=== PATIENT | female | born 1980 | race African-American/Black ===

== ENCOUNTER 2017-07-25 13:38 | Emergency (ER) | payer OTHER ==
[~2017-07-25] VITALS: Ht 175.3 cm; Wt 68.4 kg
[~2017-07-25 13:38] MED LIST: BREAST PUMP MC; CITRACAL + BON1 EACH PO; ENDOCET 5-3251 EACH PO; IBUPROFEN800 MG PO; PRENATAL VITAM1 EAC7 PO; STOOL SOFTENER1 EAC2 PO
[2017-07-25 16:18] LABS: APPEARANCE CLEAR ((CLEAR)); BILIRUBIN NEGATIVE; BLOOD NEGATIVE; COLOR YELLOW ((YELLOW)); GLUCOSE (STRIP) NEGATIVE; KETONES NEGATIVE; LEUKOCYTES TRACE; NITRITE NEGATIVE; PROTEIN (STRIP) NEGATIVE; SPECIFIC GRAVITY 1.023 (1.000-1.030)
[2017-07-25 16:23] LABS: SOURCE SWAB
[2017-07-25 16:30] LABS: BACTERIA RARE /HPF; EPITHELIAL CELLS RARE /HPF; MUCUS 1+ /LPF; UCUL ADDED? NO; WHITE BLOOD CELLS 0-5 /HPF (0-5)
[2017-07-25] MEDS ORDERED: VIBRAMYCIN100 MG PO (17:40)
[2017-07-25] MEDS ORDERED: ULTRAM50 MG PO (18:07)
[2017-07-25 18:10] VITALS: BP 114/71
== END 2017-07-25 18:11 | disposition home or self-care (01) ==
LOC: EME 13:38
PROVIDERS: Physician Assistant
DX: N73.9 Female pelvic inflammatory disease, unspecified (principal); F17.200 Nicotine dependence, unspecified, uncomplicated; Z87.42 Personal history of other diseases of the female genital tract; Z97.5 Presence of (intrauterine) contraceptive device
CPT/HCPCS: 76856; 81003; 81025; 87210; 87491; 87591; 99281; 99285; J0696; J1885

== ENCOUNTER 2017-12-29 18:47 | Inpatient (IN) | payer OTHER ==
[~2017-12-29] VITALS: Ht 175.3 cm; Wt 63.6 kg
[~2017-12-29 18:47] MED LIST changes: +ULTRAM50 MG PO; +VIBRAMYCIN100 MG PO
[2017-12-29 19:12] LABS: HEMATOCRIT 39.8 % (36.0-46.0); HEMOGLOBIN 14.3 G/DL (11.9-15.5); MCH 26.9 PG (29.0-34.0); MCHC 35.9 G/DL (30.0-36.0); PLATELET COUNT 231 K/uL (156-360); RBC DIS.WIDTH-CV 13.4 % (11.8-14.6); RBC DIS.WIDTH-SD 35.8 % (39-53); RED BLOOD COUNT 5.31 M/uL (3.80-5.20)
[2017-12-29 19:26] LABS: CHLORIDE 105 mEq/L (99-109); POTASSIUM 3.8 mEq/L (3.7-5.4); SODIUM 138 mEq/L (136-147)
[2017-12-29 19:28] LABS: GLUCOSE 97 mg/dL (70-99)
[2017-12-29 19:31] LABS: SERUM ETHYL ALCOHOL < 10 mg/dL
[2017-12-29 19:32] LABS: GFR ESTIMATE (CALCULATED) > 59 mL/min/; QUANTITATIVE HCG < 4.0 MIU/ML
[2017-12-29 19:33] LABS: UREA NITROGEN (BUN) 11 mg/dL (9-23)
[2017-12-29 20:15] LABS: AMPHETAMINE NEGATIVE (500 ng/mL); BARBITURATES NEGATIVE (200 ng/mL); BENZODIAZEPINES NEGATIVE (150 ng/mL); BUPRENORPHINE NEGATIVE (10 ng/mL); COCAINE PRESUMPTIVE POSITIVE (150 ng/mL); METHADONE NEGATIVE (200 ng/mL); METHAMPHETAMINE NEGATIVE (500 ng/mL); OPIATES (MORPHINE) NEGATIVE (100 ng/mL); OXYCODONE NEGATIVE (100 ng/mL); PHENCYCLIDINE NEGATIVE (25 ng/mL); PROPOXYPHENE NEGATIVE (300 ng/mL); THC CANNABINOIDS PRESUMPTIVE POSITIVE (50 ng/mL); TRICYCLIC ANTIDEPRESSANTS NEGATIVE (300 ng/mL)
[2017-12-30 07:44] VITALS: BP 108/61
[2017-12-30 16:21] VITALS: BP 103/58
[2017-12-31 08:06] VITALS: BP 98/57
[2017-12-31] MEDS ORDERED: TRAZODONE HCL50 MG PO (08:41)
[2017-12-31] MEDS ORDERED: HYDROXYZINE PAM50 MG PO (08:41)
== END 2017-12-31 11:25 | disposition other institution (70) | DRG 882 ==
LOC: EME 18:47 → ENRESERV 21:32 → 1WEST 21:33 → EDOF 21:33 → 1WEST 22:08
DX: F43.23 Adjustment disorder with mixed anxiety and depressed mood (principal); R45.851 Suicidal ideations; F14.20 Cocaine dependence, uncomplicated; F12.90 Cannabis use, unspecified, uncomplicated; R51 Headache; F31.9 Bipolar disorder, unspecified; F41.9 Anxiety disorder, unspecified; Z62.820 Parent-biological child conflict; Z59.0 Homelessness; F17.210 Nicotine dependence, cigarettes, uncomplicated
CPT/HCPCS: 80048; 84702; 84999; 85027; 90837; 99281; 99285; G0480; Q0177